=== PATIENT | female | born 2000 | race Caucasian/White ===

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

== ENCOUNTER 2025-06-30 17:43 | Emergency (ER) | payer BC, SELFPAY ==
[2025-06-30 17:53] VITALS: BP 150/91; PULSE 96; RESP 18; TEMP 36.7; O2SAT 98
--- NOTE | 2025-06-30 18:20 | ED.URI ---
HPI - URI/Sore Throat General Chief Complaint: Upper Respiratory Infection Stated Complaint: sore throat Time Seen by Provider: 06/30/25 18:05 Source: patient and RN notes reviewed Mode of arrival: ambulatory Limitations: no limitations History of Present Illness HPI Narrative: 25-year-old female presents to the [facility] complaining of upper respiratory symptoms for 2 weeks. Patient initially had symptoms of congestion, runny nose, cough, sore throat, and fevers for initially sick states she did said symptoms started to improve and she was feeling better however the last 4 days she has a like she has gotten worse she is complaining primarily of a sore throat, tender lymph nodes and fevers. Patient's post to have a tonsillectomy scheduled in the next month or 2. She denies any recent strep. Patient denies any significant past medical problems. Related Data Home Medications ?Medication ?Instructions ?Recorded ?Confirmed ?Last Taken ?Type buspirone 15 mg tablet 15 mg PO BID PRN 12/21/24 12/21/24 Unknown History Allergies Allergy/AdvReac Type Severity Reaction Status Date / Time No Known Allergies Allergy Mild Verified 06/30/25 17:44 Review of Systems Review of Systems: CONSTITUTIONAL: Denies body aches, chills, or sweats. Positive for fevers EYES: Denies visual changes, redness, or discharge. ENT: Denies rhinorrhea, congestion, or otalgia. Positive for sore throat CARDIOVASCULAR: Denies chest pain, palpitations, or edema. RESPIRATORY: Denies cough or dyspnea. GASTROINTESTINAL: Denies abdominal pain, nausea, vomiting, or diarrhea. GENITOURINARY: Denies dysuria or hematuria. SKIN: Denies rash or itching. MUSCULOSKELETAL: Denies back pain, joint pain, or myalgia. NEUROLOGIC: Denies headache, numbness, or weakness. PSYCHIATRIC: Denies anxiety or depression. All other systems reviewed are negative, except as documented in HPI. [facility] Family History Family History Mother Hypertension Grandparent Cerebrovascular accident Diabetes mellitus Social History Social History Smoking status: Never smoker Alcohol intake: current Substance use: never Substance use type: does not use Comments At the time of my signature, I reviewed and agree with the nursing past medical, surgical, social, and family history. There is no relevant family history pertinent to the patient complaint. Exam Narrative: GENERAL: This is a well-nourished, well-developed adult, in no apparent distress. They are non ill-appearing, nontoxic appearing. HEAD: normocephalic, atraumatic. EYES: Sclera clear/white. Conjunctiva normal. Vision is grossly intact. Extraocular movements intact EARS: External ears normal, auditory canals clear and without drainage, TMs normal without perforation. Hearing grossly intact. NOSE: External nose normal with no obvious nasal discharge, nasal turbinates without redness, no rhinorrhea. THROAT: Mucous membranes moist, posterior pharynx erythematous red and patchy. Tonsils erythematous 2+ and exudate of.. Uvula midline. NECK: Neck supple, there is tender lymphadenopathy, masses or thyromegaly. CARDIOVASCULAR: Regular rate and rhythm without murmurs, gallops, or rubs. RESPIRATORY: Clear to auscultation. Breath sounds equal bilaterally. No wheezes, rales, or rhonchi. SKIN: warm, Dry, intact with no suspicious lesions or rash, good texture and turgor. NEURO: awake, alert, and oriented to person, place and time. There were no obvious focal neurologic abnormalities. EXTREMITIES: No joint tenderness, effusion, or edema noted. BACK: Nontender without deformity. No CVA tenderness. Course Course Level of Care: Express Care Visit Vital Signs Vital signs: Vital Signs Temperature 98.0 F 06/30/25 17:53 Pulse Rate 96 06/30/25 17:53 Respiratory Rate 18 06/30/25 17:53 Blood Pressure 150/91 H 06/30/25 17:53 Pulse Oximetry 98 06/30/25 17:53 Oxygen Delivery Room Air 06/30/25 17:53 Temperature 98.0 F 06/30/25 17:53 Pulse Rate 96 06/30/25 17:53 Respiratory Rate 18 06/30/25 17:53 Blood Pressure 150/91 H 06/30/25 17:53 Pulse Oximetry 98 06/30/25 17:53 Oxygen Delivery Room Air 06/30/25 17:53 [facility] Narrative Medical decision making narrative: Rapid strep is negative. Throat culture is pending. There is clinical suspicion for strep pharyngitis, patient's symptoms have not fully resolved over the last 2 weeks. Go ahead and treat her with cefdinir. Discussed physical exam findings. Advised supportive measures and signs/symptoms to go to the ER. Pt is appropriate for outpt treatment and f/u. Differential Diagnosis Differential Diagnosis: Differential diagnostic considerations for upper respiratory infection include upper respiratory infection, croup, otitis media, sinusitis, viral infection, bronchitis, influenza, pharyngitis, strep, uvulitis. Lab Data Labs: Lab Results 06/30/25 Range/Units 18:28 POC Grp A Strep Screen Negative (Negative) Critical Care Time Critical Care Time Critical Care Time: No Discharge Plan Discharge Clinical Impression: Acute bacterial tonsillitis Patient Disposition: Home Condition: Stable Instructions: Antibiotic Form, Tonsillitis (ED) Additional Instructions: Throat culture be sent off and if it is positive for strep you will be contacted. ?Please take the cefdinir as prescribed until gone. ?You will be contagious for 24 hours after starting the medication. ?After 24 hours on antibiotics throw tooth brush away and start using a new one. Wash your sheets and cup/water bottle that is used daily. Do not share drinks. Take Tylenol or Ibuprofen as needed for pain or fevers. Follow instructions on the bottle.. ?Rest and stay hydrated. ?Follow up with your PCP in 3 days if symptoms are not improving. ?Go to the ER immediately if you develop worsening symptoms such as shortness of breath, chest pain, vomiting difficulty swallowing, or any serious concerns. ? Patient Language: Pashto Prescriptions: New cefdinir 300 mg capsule 300 mg PO Q12H 10 Days Qty: 20 0RF No Action cetirizine-pseudoephedrine [Zyrtec-D] 5-120 mg tablet extended release 12 hr 1 tablet PO Q12H PRN (Reason: nasal congestion) Qty: 12 0RF buspirone 15 mg tablet 15 mg PO BID PRN fluticasone propionate 50 mcg/actuation spray,suspension 1 spray intranasal DAILY 30 Days Qty: 16 2RF Rx Instructions: administer into each nostril Follow-up/Referrals: Mikie,Gloria Graham APRN [Primary Care Provider, Family Practice] Stand Alone Forms: Work/School Release IP Time of Disposition: 18:26
--- OUTSIDE RECORDS SUMMARY | 2025-06-30 18:59 | XMS_ITS | Clinical Summary ---
Author Organization [facility] Address [address] [place] [id number] Care Team Providers Care Sales Support Technician Name Role Phone Gloria Deluna CIRCULATION SALES REPRESENTATIVE Primary Care Provider Allergies No known active allergies Medications levonorgestrel (NÉSTOR) 13.5 MG IUD 1 each (13.5 mg total) by Intrauterine route once. Active busPIRone (BUSPAR) 15 MG tabletIndicatio ns:Anxiety Take 1 tablet (15 mg total) by mouth 2 (two) times daily. 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 25 Overview (05/12/2025): Depression, Problem Code: 301.12; Problem Code Type: ICD-9; Exposure to bat without known bite 04/01/2025 Pruritus of vulva 02/02/2025 Allergic rhinitis due to pollen, unspecified sea sonality 04/14/2024 Anxiety 05/06/2023 Obesity (BMI 30-39.9) 05/06/2023 Encounters Date Type Department Care Team Description 06/21/2025 MyChart Message Enc [facility] [address] [phone] Gloria Deluna NP Lab test request 05/17/2025 Results Follow-Up [facility] [address] [phone] Gloria Deluna, MELISSA HEMOGLOBIN, GLYCOSYLATED, TSH W/REFLEX, CBC W/DIFF AUTOMATED, COMPREHENSIVE METABOLIC PANEL 05/12/2025 12:32 PM CDT - 05/12/2025 11:59 PM CDT Hospital Encounter [facility] [address] [place] [address] Gloria Deluna, MELISSA Discharge Disposition: Home or Self Care (Routine Discharge) 05/12/2025 11:40 AM CDT Laboratory Only [facility] [address] [place] [address] Gloria Deluna, MELISSA 05/12/2025 11:00 AM CDT Office Visit [facility] [address] [place] [address] Gloria Deluna, MELISSA Physical 05/12/2025 Travel 04/12/2025 6:30 PM CDT - 04/12/2025 11:59 PM CDT Hospital Encounter [facility] Emergency Department Outpatient [address] [place] [address] Froilan Torre MD Discharge Disposition: Home or Self Care (Routine Discharge) 04/12/2025 Travel 04/05/2025 6:30 PM CDT - 04/05/2025 11:59 PM CDT Hospital Encounter [facility] Emergency Department Outpatient [address] [place] [address] Froilan Torre MD Discharge Disposition: Home or Self Care (Routine Discharge) 04/05/2025 Travel 04/01/2025 6:23 PM CDT - 04/01/2025 11:59 PM CDT Hospital Encounter [facility] Emergency Department Outpatient [address] [place] [address] Froilan Torre MD Discharge Disposition: Home or Self Care (Routine Discharge) 04/01/2025 Travel 04/01/2025 Therapy Plan [facility] [address] [place] [address] Michelle Talavera RN from Last 3 Months Immunizations Immunization Administration Dates Next Due DTaP (Daptacel) 01/03/2007,10/04/2003 Dtap (Acel-Immune) 07/14/2003, 3,2002,06/03 Flumist (Intranasal) 04/27/2014,04/27/20 14,04/17/2013,04/17 HPV GARDASIL 9-VALENT 11/18/2018,07/10/2018 HPV4 (Gardasil) 05/06/2018 Hepatitis A (Generic) 08/19/2009 Hepatitis A (Havrix 720 [address].U) 10/20/2007, 007 Hepatitis B (Recombivax Hb 10 Mcg) 07/10,07/10/2022,02/16/2022,02/16,01/03/2022,01/03/2022 Hepatitis B Pediatric 2002,2002 Hib (Generic) 07/14/2003,2002,2002 Hib-Hepatitis B (Comvax) 2002 Influenza (Generic) 07/19/2012,06/12/2011,2007 Influenza Adult (Generic) 04/27/2023,01/2022,05/31/2020,03/30,05/04/2018,04/24/2017,07/14/2016 ,05/11/2015 MMR (MMRII) 08/19/2009,10/20/2007,04/14/2003 Meningococcal (Menactra) 05/06/2018,02/11/2014 PFIZER COVID-19 (ORIGINAL FO RMULATION, PURPLE CAP) mRNA, LNP-S, PF, 30 MCG/0.3 ML DOSE 11/17/2020,10/27/2020 Pneumococcal (Prevnar 7) 07/14/2003,07/2002,2002,06/03 Polio IPV (Ipol) 08/19/2009, 3,2002,06/03 Rabies (Rabavert) 04/12/2025, 5,04/01/2025,03/29 Tdap (Generic) 02/11/2014 Varicella (Varivax) 01/03/2007,04/14/2003 Family History Medical History Relation Comments ADD Father Stroke Maternal Grandfather Diabetes Maternal Grandmother Depression Mother Heart Disease Mother Hyperlipidemia Mother Hypertension Mother Mental Health Mother Cancer Paternal Aunt Ovarian Relation Status Comments Father Alive Maternal Grandfather Maternal Grandmother Mother Alive Paternal Aunt Social History Tobacco Use Types Packs/Day Years Used Date Smoking Tobacco: Never Passive Smoke Exposure: Never Smokeless Tobacco: Never Tobacco Cessation:Counseling Given: Not Answered Alcohol Use Standard Drinks/Week Comments Yes 4 (1 standard drink = 0.6 oz pur e alcohol) AUDIT-C Answer Date Recorded Q1: How often do you have a drink containing alc ohol? Never 09/30/2020 Average Number of Drinks Not on file 021 Frequency of Binge Drinking Not on file 09/12 PHQ-2 Answer Date Recorded Patient Health Questionnaire-2 Score 0 04/14/2024 Comments No Sex and Gender Information Value Date Recorded Sex Assigned at Female 03/29/2025 10:40 PM CDT Legal Sex Female 8:30 PM CDT Gender Identity Not on file Sexual Orientation Not on file Last Filed Vital Signs Vital Sign Reading Time Taken Comments Blood Pressure 124/86 05/12/2025 11:06 AM CDT Pulse 79 05/12/2025 11:06 AM CDT Temperature 37.2 C (99 F) 05/12/2025 11:06 AM CDT Respiratory Rate 16 05/12/2025 11:0 6 AM CDT Oxygen Saturation 96% 05/12/2025 11: 06 AM CDT Inhaled Oxygen Concentration - - Weight 102.2 kg (225 lb 3.2 oz) 025 11:06 AM CDT Height 162.6 cm (5' 4) 05/12/2025 11:0 6 AM CDT Body Mass Index 38.66 05/12/2025 11:06 AM CDT Plan of Treatment Health Maintenance Due Date Last Done Comments Cervical Cancer Screening Pap Smear (Age 21 to 29) Every 3 Years 2002 Cervical Cancer Screening 2002 Chlamydia Screening Females ages 16-24 2018 Meningococcal B Vaccine (1 of 2 - Standard) 2018 DTaP, Tdap and Td Vaccines (7 - Td or Tdap) 02/12/2024 02/11/2014, 01/03/2007, 10/04/2003, Additional history exists PHQ-2 (Physician [place]) 07/15/2024 04/14/2024 COVID-19 Vaccine ( season) 2025 11/17/2020, 10/27/2020 Annual Physical 05/12/2026 05/12/2025, 04/15, 01/03/2022 Hepatitis C 05/06/2053 Postponed from 2020 (Patient Refused) Pneumococcal Vaccine: Pediatrics (0 to 5 Years) and At-Risk Patients (6 to 49 Years) Aged Out 07/14/2003, 04/14/2003, 2002, Additional history exists No longer eligible based on patient's age to complete this topic Hepatitis A Vaccines Completed 08/19/2009, 10/20/2007, 01/03/2007 Meningococcal Vaccine Completed 05/06/2018, 014 HPV Vaccines Completed 11/18/2018, 06/15, 05/06/2018 Hepatitis B Vaccines Completed 07/10/2022, 07/10/2022, 02/16/2022, Additional history exists Influenza Adult Completed 05/26/2025, 04/15, 04/27/2023, Additional history exists RSV Immunizations Under 20 Months Aged Out No longer eligible based on patient's age to complete this topic Procedures Procedure Name Priority Date/Time Associated Diagnosis Comments COLLECTION VENOUS BLOOD VENIPUNCTURE Routine 05/12/2025 11:31 AM CDT Obesity (BMI 30-39.9) Encounter for preventive health examination COMPREHENSIVE METABOLIC PANEL Routine 05/12/2025 11:31 AM CDT Obesity (BMI 30-39.9) Encounter for preventive health examination CBC W/DIFF AUTOMATED Routine 05/12/2025 11:31 AM CDT Obesity (BMI 30-39.9) Encounter for preventive health examination TSH W/REFLEX Routine 05/12/2025 11:31 AM CDT Obesity (BMI 30-39.9) Encounter for preventive health examination HEMOGLOBIN, GLYCOSYLATED Routine 05/12/2025 11:31 AM CDT Obesity (BMI 30-39.9) Encounter for preventive health examination from Last 3 Months Results * TSH W/REFLEX (05/12/2025 11:31 AM CDT) TSH 1.508 0.358 - 3.74 uIU/ML 05/12/2025 1:14 PM CDT [facility] Comment: HIGH DOSES OF BIOTIN MAY INTERFERE WITH THIS TEST RESULT. CORRELATION TO CLINICAL HISTORY AND PRESENTATION RECOMMENDED. FREE T4 NOT INDICATED 05/12/2025 11:3 1 AM CDT Gloria Deluna NP LABORATORY Final Result Performing Organization Address [facility] de Phone Number [facility] [address] [place] [address], [place] [phone] * HEMOGLOBIN, GLYCOSYLATED (05/12/2025 11:31 AM CDT) HGB A1C 5.1 <5.7 % 05/12/2025 1:39 PM CDT [facility] Comment: INCREASED RISK OF DIABETES <5.7% NON-DIABETES 5.7-6.4% INCREASED RISK FOR FUTURE DIABETES > OR = 6.5 CONSISTENT WITH DIABETES STANDARDS OF MEDICAL CARE IN DIABETES-2010 DIABETES CARE, 33(SUPP 1): S1-S61,2010 ESTIMATED AVG GLUCOSE 100 mg/dL 05/12/2025 1:39 PM CDT [facility] 05/12/2025 11:3 1 AM CDT us Gloria Deluna NP LABORATORY Final Result [facility] [address] [place] [address], * COMPREHENSIVE METABOLIC PANEL (05/12/2025 11:31 AM CDT) [facility] GLUCOSE 85 70 - 99 MG/DL 05/12/2025 1:14 PM CDT [facility] BUN 9 7 - 18 MG/DL 05/12/2025 1:14 PM CDT [facility] CREATININE S/P/B 0.70 0.55 - 1.02 MG/DL 05/12/2025 1:14 PM CDT [facility] SODIUM S/P/B 138 136 - 145 MMOL/L 05/12/2025 1:14 PM CDT [facility] POTASSIUM S/P/B 4.7 3.5 - 5.1 MMOL/L 05/12/2025 1:14 PM CDT [facility] CHLORIDE S/P/B 101 100 - 108 MMOL/L 05/12/2025 1:14 PM CDT [facility] CO2 27.2 21 - 32 MMOL/L 05/12/2025 1:14 PM CDT [facility] CALCIUM S/P/B 9.3 8.5 - 10.1 MG/DL 05/12/2025 1:14 PM CDT [facility] BILIRUBIN TOTAL S/P/B 0.6 0.2 - 1.2 MG/DL 05/12/2025 1:14 PM CDT [facility] TOTAL PROTEIN S/P/B 7.5 6.4 - 8.2 G/DL 05/12/2025 1:14 PM CDT [facility] ALBUMIN S/P/B 4.3 3.4 - 5.0 G/DL 05/12/2025 1:14 PM CDT [facility] AST 23 15 - 37 U/L 05/12/2025 1:14 PM CDT [facility] ALT 48 14 - 55 U/L 05/12/2025 1:14 PM T [facility] ALKALINE PHOSPHATASE S/P/B 81 50 - 136 U/L 05/12/2025 1:14 PM CDT [facility] ANION GAP 9.8 5 - 15 MMOL/L 05/12/2025 1:14 PM CDT [facility] BUN CREATININE RATIO 12.9 6 - 26 05/12/2025 1:14 PM T [facility] A/G RATIO 1.3 1.0 - 2.0 RATIO 05/12/2025 1:14 PM T [facility] GFR ESTIMATE >90 >90 ML/MIN/1.7 3 M2 05/12/2025 1:14 PM T [facility] Comment: NOTE: eGFR is not calculated for patients <18 years of age. This is an estimated GFR calculation using the new CKD EPI creatinine equation without race and so does not require a correction factor for race. This estimated GFR should not be used for calculating drug doses. 05/12/2025 11:3 1 AM CDT us Gloria Deluna NP LABORATORY Final Result [facility] [address] [place] [address], * (ABNORMAL) CBC W/DIFF AUTOMATED (05/12/2025 11:31 AM CDT) WBC 9.84 4.4 - 11.0 x10'3/uL 05/12/2025 12:49 PM CDT [facility] RBC 4.79 4.50 - 5.10 x10'6/uL 05/12/2025 12:49 PM CDT [facility] HGB 14.8 12.3 - 15.3 G/DL 05/12/2025 12:49 PM CDT [facility] HCT 43.5 35.9 - 44.6 % 05/12/2025 12:49 PM CDT [facility] MCV 90.8 80.0 - 96.0 FL 05/12/2025 12:49 PM CDT [facility] MCH 30.9 25.3 - 30.9 PG 05/12/2025 12:49 PM CDT [facility] MCHC 34.0 31.0 - 34.1 G/DL 05/12/2025 12:49 PM CDT [facility] RDW 13.1 12.4 - 15.1 % 05/12/2025 12:49 PM CDT [facility] PLT 409(H) 151 - 353 x10'3/uL 05/12/2025 12:49 PM CDT [facility] MPV 10.3 9.6 - 12.0 FL 05/12/2025 12:49 PM CDT [facility] RBC MORPHOLOGY NORMAL 05/12/2025 12:49 PM CDT [facility] PLT MORPH. NORMAL 05/12/2025 12:49 PM CDT [facility] WBC MORPHOLOGY NORMAL 05/12/2025 12:49 PM CDT [facility] LYMPHOCYTES % 23.6 15.8 - 45.0 % 05/12/2025 12:49 PM CDT [facility] NEUTROPHILS % 66.7 42.1 - 71.9 % 05/12/2025 12:49 PM CDT [facility] MONOCYTES % 7.5 5.7 - 12.5 % 05/12/2025 12:49 PM CDT [facility] EOSINOPHILS 1.8 0.0 - 5.6 % 05/12/2025 12:49 PM CDT [facility] BASOPHILS 0.2 0.0 - 1.3 % 05/12/2025 12:49 PM CDT [facility] ABS. NEUTROPHILS 6.56(H) 1.40 - 6.00 x10'3/uL 05/12/2025 12:49 PM CDT [facility] IMMATURE GRANS % 0.2 0.0 - 0.5 % 05/12/2025 12:49 PM CDT [facility] ABS. LYMPHOCYTES 2.32 0.80 - 4.70 x10'3/uL 05/12/2025 12:49 PM CDT [facility] 05/12/2025 11:3 1 AM CDT us Gloria Deluna NP LABORATORY Final Result Performing Organization Address City/State/[facility] Co de Phone Number [facility] [address] [place] [address], from Last 3 Months Insurance Care Teams Sales Support Technician Relationship Specialty [place] [address] [facility] [address]. [place] [id number] PCP - General Nurse Practitioner Family 04/14/24
--- OUTSIDE RECORDS SUMMARY | 2025-06-30 18:59 | XMS_ITS | Data Portability ---
Author Organization [facility], [id number] [facility] Address [address] [place] [address] Assessment No assessment recorded. Plan of Treatment Reminders Order Date Submit Date Provider Last Modified By Organization Details Last Modified Time Details Appointments ANNUAL - EST 15 026 07:00AM NANCY RIVAS WHNP Not available Not available Not available Lab None record ed. Referral None record ed. Procedures None record ed. Surgeries None record ed. Imaging None record ed. Medication Orders None record ed. Patient TargetsNo targets recorded. Patient Instructions Encounter Date Encounter Id Patient Instructions Last Modified By Organization Details Last Modified Time 02/02/2025 [id number] - Use hydrocortisone or clotrimazole cream as needed for itching. - Monitor symptoms and report any changes or worsening. [email or web address] Not available 02/02/2025 15:45:31 I discussed with the patient the possible causes of her symptoms, including a yeast infection and irritation. We reviewed the use of topical treatments like clotrimazole cream. I advised her to monitor her symptoms and report any changes or worsening. No visible lumps were detected during the examination, but I instructed her to report any changes in size or appearance. The patient should follow up if symptoms persist or worsen, or if there are any changes in the lump's size or appearance. [email or web address] Not available 02/02/2025 16:30:38 Reason for Referral None Reported. Problems Name Problem SNOMED Code Status Onset Date Resolution Date Notes Provider Name and Address Organization Details Recorded Time Anxiety state 655934229 Active Anxiety Disorder, Generaliz ed, - Phreesia Problem Code: 300.00; Problem Code Type: ICD-9; Not Available [facility] 12:04:56 Chronic depressive personalit y disorder 842858302 Active Depressio n, Problem Code: 301.12; Problem Code Type: ICD-9; Not Available [facility] 12:04:56 Pruritus of vulva 00953851 Active 2024 NANCY RIVAS [facility] [address], [place], [address] , [facility] 16:30:24 Problem Notes None recorded. Procedures Surgical History Date Name Laterality Status Provider Name and Address Organization Details Recorded Time 01/21/2024 Date of Last Pap Smear completed Flores Baker(TERM) [facility] 02/01/2025 12:04:25 Lela, 13.5 mg completed NANCY RIVAS MELISSA [address], [place], [address], [facility] 02/02/2025 15:37:15 Imaging Results None recorded. Procedure Notes None recorded. Medical Equipment None Reported. Allergies No known drug allergies Medications Name Sig Start Date Stop Date Status Note LastModified by Organization Details LastModified Time fluconazole 150 mg tablet TAKE 1 TABLET BY MOUTH NOW THEN REPEAT IN 1 WEEK 02/01 completed Not Available Not Available Not Available prednisone 20 mg tablet TAKE 3 TABLETS BY MOUTH ONCE DAILY FOR 6 DAYS 02/01 completed Not Available Not Available Not Available amoxicillin 875 mg tablet TAKE 1 TABLET BY MOUTH TWICE DAILY FOR 10 DAYS 01/31 completed Not Available Not Available Not Available fluticasone propionate 50 mcg/actuati on nasal spray,suspe nsion SHAKE LIQUID AND USE 1 SPRAY IN EACH NOSTRIL DAILY active Not Available Not Available No t Available Lela 14 mcg/24 hr (up to 3 years) 13.5 mg intrauterin e device Take by intrauter ine route. 2023 active Not Available Not Available Not Avai lable Vitals Date Recorded Body height Body mass index (BMI) Body weight Systolic And Diastolic Provider Name and Address Organization Details Last Updated DateTime 02/02/2025 160.02 cm 39.5 kg/m2 922762.1 g 126/70 mm[Hg] Flores Baker(TERM ) [facility] 02/02/2025 15:07:38 Social History Question Answer Notes LastModified by Organizat ion Details LastModified Time Tobacco Smoking Status Never Smoker Screenin02/21/2020 Not Available [facility] 11/12/2024 12:43:19 Do You Have An Advance Directive? No Information not available 02/02/2025 If You Are , What Was Your Level Of Alcohol Consumption Prior To ? Occasional Information not available 02/02/2025 How Many Years Have You Consumed Alcohol? 4 Information not available 02/02/2025 What Is Your Level Of Caffeine Consumption? Moderate Information not available 02/02/2025 What Type Of Diet Are You Following? REGULAR Information not available 02/02/2025 How Many Times Per Week Do You Exercise? Less Than 1 Time Per Week SocialHist oryQuestio n: 'Active But No Formal Exercise'; Information not available 11/12/2024 What Is Your Relationship Status? Other Note: Single Information not available 11/12/2024 Sex: Female Functional Status Question Answer Note LastModified by [employer] Details LastModified Time Do you use any illicit or recreational drugs? No Information not available 11/12/2024 What is your level of alcohol consumption? Occasional Qty: 0-2 per day; Note: Use status used: Never Information not available 11/12/2024 Are you currently employed? 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 Family History Relationship Description Onset Age of this Age Resolved Age Notes LastModified by Organization Details LastModified Time Maternal Grandfather Cerebrovascu lar accident Stroke Not available 07/2024 11:55:28 Maternal Grandfather Depressive disorder Depres petra Not available 11/12/2024 11:55:28 Maternal Grandfather Hypertensive disorder High Blood Pressu re Not available 11/12/2024 11:55:28 Maternal Grandfather Type 2 diabetes mellitus without complication DM Type II Proble m Code: 250.00 ; Proble m Code Type: ICD-9; API-27 Not available 02/02/2025 15:01:28 Maternal Grandfather Parkinson's disease [place] son's Diseas e API-27 Not available 02/02/2025 15:01:28 Maternal Grandmother Type 2 diabetes mellitus without complication DM Type II Proble m Code: 250.00 ; Proble m Code Type: ICD-9; API-27 Not available 02/02/2025 15:01:28 Maternal Grandmother Parkinson's disease [place] son's Diseas e API-27 Not available 02/02/2025 15:01:28 Mother Type 2 diabetes mellitus without complication DM Type II Proble m Code: 250.00 ; Proble m Code Type: ICD-9; API-27 Not available 02/02/2025 15:01:28 Mother Parkinson's disease Chris son's Diseas e API-27 Not available 02/02/2025 15:01:28 Unspecified Relation Type 2 diabetes mellitus without complication DM Type II Proble m Code: 250.00 ; Proble m Code Type: ICD-9; Relati ve: 'Aunt' ; API-27 Not available 02/02/2025 15:01:28 Unspecified Relation Parkinson's disease [place] son's Diseas e Relati ve: 'Aunt' ; API-27 Not available 02/02/2025 15:01:28 Maternal Grandmother Depressive disorder Depres petra Not available 11/12/2024 11:55:28 Maternal Grandmother Hypertensive disorder High Blood Pressu re Not available 11/12/2024 11:55:28 Mother Depressive disorder Depres petra Not available 11/12/2024 11:55:28 Mother Hypertensive disorder High Blood Pressu re Not available 11/12/2024 11:55:29 Unspecified Relation Depressive disorder Depres petra Relati ve: 'Aunt' ; Not available 11/12/2024 11:55:28 Unspecified Relation Hypertensive disorder High Blood Pressu re Relati ve: 'Aunt' ; Not available 11/12/2024 11:55:29 Medical History Condition Response Psych- Anxiety Disorder Y ID-Other Y Psych- Depression Y Cancer- Genetic screening Gynecological History Statement/Question Response History of PCOS N Flow Heavy History of Fibroids N Date of LMP 12/17/2023 History of Infertility N History of Vulvar Dysplasia N History of Cervical Dysplasia N Current Control Method: IUD Duration of Flow (days) 0 Age at Menarche 14 Current Control Method IUD History of Recurrent Ovarian Cysts N Age at first intercourse 19 HPV Vaccine Completed History of Endometriosis N Sexually Active? Y History of Dysmenorrhea N Menses Monthly N Date of Last Pap Smear 01/21/2024 Sexual Problems? N History of Sexually Transmitted Infectio n N Obstetrics History GPAL:G 0 P 0 0 0 0 Type Value Multiple Births 0 Full Term 0 Induced 0 Spontaneous 0 Premature 0 Living 0 Ectopics 0 Total 0 Past Encounters Encounter ID Performer Location Encounter Start Date Encounter Closed Date Diagnosis/Indication Diagnosis SNOMED-CT Code Diagnosis ICD10 Code Diagnosis IMO Codes Diagnosis Note [id number] LORAINE MERRILL [id number] [facility] [address] [place] [address] 02/02/2025 14:59:12 02/02/2025 15:48:32 Gynecologic examination 28641018 Z01.898 8145603 Pruritus of vulva 445956 00 L29.2 716543 Health Concerns Section Related Observation LastModified by Organization Detai ls LastModified Time None Recorded Concern Status LastModified by Organization Details LastModified Time None Recorded Advance Directives Directive N: Payers Insurance Date Sequence Insurance Name Policy Number Policy Cesar Covered Member ID Cesar Member ID Guarantor Name 01/30/2025 1 [place] [id number] P Kalen Blanco [id number] Katharine Blanco Notes Date Note Type Note Provider Name and Address Organization Details Recorded Time 02/02/2025 text/html - The patient is a 24-year-old female presenting for annual and complaints of vulvar swelling and itching. - Symptoms began on Saturday, initially suspected as a yeast infection. - Took Diflucan, symptoms worsened after concert. Symptoms improving. - Noticed lump near clitoris or urethra, right side swelling. - No pain, significant itching persists. - Lela IUD inserted last year, no periods since. - Sexually active with one partner, no STD concerns. 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 - Relationship: In a relationship with one partner for five years. NANCY RIVAS MELISSA [address] [address], [place], [address], [facility] 02/02/2025 16:31:22 OBGyn Episode No OBEpisode recorded.
--- OUTSIDE RECORDS SUMMARY | 2025-06-30 18:59 | XMS_ITS | Encounter Summary ---
Author Organization [facility] Address [address] [place] [address] Care Team Providers Care Requirements Engineer Name Role Phone Gloria Deluna NP Primary Care Provider [phone] Encounter Details Date Type Department Care Team (Late st Contact Info) Description 04/01/2025 Therapy Plan [facility] [address] [place] [address] Michelle Talavera RN Social History Tobacco Use Types Packs/Day Years Used Date Smoking Tobacco: Never Passive Smoke Exposure: Never Smokeless Tobacco: Never Alcohol Use Standard Drinks/Week Comments Yes 4 [...] on file Sexual Orientation Not on file documented as of this encounter Plan of Treatment Not on file documented as of this encounter Visit Diagnoses Diagnosis Exposure to bat without known bite- Primary Contact with or exposure to unspecified communicable disease documented in this encounter Additional Health Concerns Assessment Noted Time PHQ-9 Depression Total Score: 2 04/14/20 24 10:39 AM CDT documented as of this encounter Care Teams Requirements Engineer Relationship Specialty Start Date End Date Gloria Deluna, ATTENDANCE SECRETARY [address] [place] [address] PCP - General Nurse Practitioner Family 04/14/24 documented as of this encounter
--- OUTSIDE RECORDS SUMMARY | 2025-06-30 18:59 | XMS_ITS | Encounter Summary ---
Author Organization [facility] Address [address] [place] [address] Care Team Providers Care Balloon Seller Name Role Phone Gloria Deluna NP Primary Care Provider Encounter Details Date Type Department Care Team (Latest Contact Info) Description 05/17/2025 Results Follow-Up [facility] Family & Internal Medicine - [place] [address] [place] [address] Gloria Deluna NP [address] [place] [address] [address] [address] HEMOGLOBIN, GLYCOSYLATED, TSH W/REFLEX, CBC W/DIFF AUTOMATED, COMPREHENSIVE METABOLIC PANEL Social History Tobacco Use Types Packs/Day Years [...] documented as of this encounter Visit Diagnoses Not on filedocumented in this encounter Additional Health Concerns Assessment Noted Time PHQ-9 Depression Total Score: 2 04/14/20 10:39 AM CDT documented as of this encounter Care Teams Balloon Seller Relationship Specialty Start Date End Date Gloria Deluna, MELISSA [address] [place] [address] PCP - General Nurse Practitioner Family 04/14/24 documented as of this encounter
--- OUTSIDE RECORDS SUMMARY | 2025-06-30 18:59 | XMS_ITS | Encounter Summary ---
Author Organization [facility] Address [facility] [place] [address] Care Team Providers Care Career Guidance Counselor Name Role Phone Natividad Vinson Primary Care Provider [phone] Thea Burns NP Primary Care Provider [phone] Eloy Ritter Primary Care Provider [phone] Gloria Deluna MS SQL DBA Primary Care Provider + [phone] Encounter Details Date Type Department Care Team (Late st Contact Info) Description 12/21/2021 [employer] Message [facility] Patient Accounts [address] [place] [address] [facility] Provider Balance and payments Social History Tobacco Use Types Packs/Day Years Used Date Smoking Tobacco: Never Smokeless Tobacco: Never Alcohol Use Standard Drinks/Week Comments Never 0 (1 standard drink = 0.6 oz pur e alcohol) AUDIT-C Answer Date Recorded Q1: How often do you have a drink containing alc ohol? Never 09/30/2020 Average Number of Drinks Not on file 021 Frequency of Binge Drinking Not on file 09/12 PHQ-2 Answer Date Recorded PHQ-2 Score - If the patient scores above 3, please move on to questions 3-9 1 09/22/2021 Comments No Sex and Gender Information Value Date Recorded Sex Assigned at Female 03/29/2025 10:40 PM CDT Legal Sex Female 8:30 PM CDT Gender Identity Not on file Sexual Orientation Not on file documented as of this encounter Plan of Treatment Not on file documented as of this encounter Visit Diagnoses Not on filedocumented in this encounter Additional Health Concerns Infection Onset Date Last Indicated Resolved Time COVID-19 Rule Out 10/01/2023 10/01/2023 10/01/2023 3:13 PM CDT Assessment Noted Time PHQ-9 Depression Total Score: 3 09/23/19 22 8:34 AM ENGLISH HORN PLAYER documented as of this encounter Care Teams Career Guidance Counselor Relationship Specialty [place] [address] [place] [address] PCP - General PHYSICIAN MONOGRAM AND LETTER PASTER 05/12/21 03/07/23 [place] [address] [facility] [address] [place] [address] PCP - General Nurse Practitioner Family 03/08/2309/12 [place] [address] [place] [address] PCP - General Physician Manual Control Auger Press Operator Medical 09/24/23 [place] [address] [address] [place] [address] PCP - General Nurse Practitioner Family 04/14/24 documented as of this encounter
--- OUTSIDE RECORDS SUMMARY | 2025-06-30 18:59 | XMS_ITS | Encounter Summary ---
Author Organization [facility] Address [address] [place] [address] Care Team Providers Care Induction Machine Setter Name Role Phone Natividad Vinson Primary Care Provider [phone] Thea Burns NP Primary Care Provider [phone] Eloy Ritter Primary Care Provider [phone] Gloria Deluna TAG AND LABEL CUTTER Primary Care Provider + [phone] Encounter Details Date Type Department Care Team (Late st Contact Info) Description 01/31/2023 [employer] Message [facility] Medical [facility] Family & Internal Medicine [address] [address] [facility] Appointment & medication refill Social History Tobacco Use Types Packs/Day Years [...] Date Recorded Patient Health Questionnaire-2 Score 0 01/16/2023 Comments No Sex and Gender Information Value [...] Total Score: 3 09/23/19 22 8:34 AM POLICE JUSTICE documented as of this encounter Care Teams Induction Machine Setter Relationship Specialty [place] [address] [place] [address] PCP - General PHYSICIAN SEXUAL ASSAULT COUNSELLOR 05/12/21 03/07/23 [place] [address] Yen[address] Garcia, [address] [address] PCP - General Nurse Practitioner Family 03/08/2309/12 [place] [address] [place] [address] PCP - General Physician Deaf Interpreter Medical 09/24/23 [place] [address] [address] [place] [address] PCP - General Nurse Practitioner Family 04/14/24 documented as of this encounter
--- OUTSIDE RECORDS SUMMARY | 2025-06-30 18:59 | XMS_ITS | Encounter Summary ---
Author Organization [facility] Address [facility] [place] [address] Care Team Providers Care Property Staff Accountant Name Role Phone Natividad Vinson Primary Care Provider [phone] Thea Burns NP Primary Care Provider [phone] Eloy Ritter Primary Care Provider [phone] Gloria Deluna INSOLE COVERER Primary Care Provider + [phone] Encounter Details Date Type Department Care Team (Late st Contact Info) Description 02/06/2022 [employer] Message [facility] Patient Accounts [address] [place], [place] [id number] [facility] Payment Plan Social History Tobacco Use Types Packs/Day Years [...] Total Score: 3 09/23/19 22 8:34 AM GUIDE PLANT documented as of this encounter Care Teams Property Staff Accountant Relationship Specialty [place] [address] [place] [address] PCP - General PHYSICIAN PIECE DYER 05/12/21 03/07/23 [place] [address] [facility] [address] [place] [address] PCP - General Nurse Practitioner Family 03/08/2309/12 [place] [address] [place] [address] PCP - General Physician Honing Job Setter Medical 09/24/23 [place] [address] [address] [address] PCP - General Nurse Practitioner Family 04/14/24 documented as of this encounter
--- OUTSIDE RECORDS SUMMARY | 2025-06-30 18:59 | XMS_ITS | Clinical Summary ---
Author Organization [facility] Address [address] [place] [address] Care Team Providers Care Switch Tender Name Role Phone Unavailable Primary Care Provider Unavailabl e Source Comments [facility],non-owned Affiliates and Associated Physician Practices is amultiple site organization consisting of ambulatory clinics and hospital sitesin [place], [place], [place] and [place]. This disclosure is being madepursuant to the Care Everywhere program and may not contain all information available regarding this patient. Last updated 18.[facility] docplanner Allergies No known active allergies Immunizations Immunization Administration Dates Next Due INFLUENZA VACCINE, QUADR. (F LUZONE; FLULAVAL; FLUARIX; AFLURIA QUADRIVALENT; 6MO+), 0.5 ML (IIV4) 07/14/2016 Social History Tobacco Use Types Packs/Day Years Used Date Smoking Tobacco: Never Assessed Comments Unknown Sex and Gender Information Value Date Recorded Sex Assigned at Not on file Legal Sex Female 6:45 AM OWNER ORAL SURGEON Gender Identity Not on file Sexual Orientation Not on file Plan of Treatment Health Maintenance Due Date Last Done Comments HIV SCREENING 2017 HPV VACCINE (1 - 3-dose series) 2017 CHLAMYDIA/GONORRHEA SCREENING 2018 MENINGOCOCCAL (Group B) VACC INE SHARED DECISION-MAKING (1 of 2 - Standard) 2018 HEPATITIS C SCREENING 04/02/2020 DTAP/TDAP/TD VACCINES (1 - Tdap) 2021 HEPATITIS B VACCINE (1 of 3 - 19+ 3-dose series) 2021 DEPRESSION SCREENING 07/15/2024 COVID-19 VACCINE (1 - 2024-2 6 season) 2025 INFLUENZA VACCINE (#1) 2025 07/14/2016 ZOSTER VACCINE (1 of 2) 2052 HIB VACCINE Aged Out No longer eligi ble based on patient's age to complete this topic MENINGOCOCCAL GROUPS A/C/Y/W VACCINE Aged Out No longer eligible b ased on patient's age to complete this topic PNEUMOCOCCAL VACCINE Aged Out No long er eligible based on patient's age to complete this topic Insurance [facility]
--- OUTSIDE RECORDS SUMMARY | 2025-06-30 19:00 | XMS_ITS | Clinical Summary ---
Author Organization [facility] Address [address] [facility] [place] [address] Care Team Providers Care Supervisor Respiratory Name Role Phone Unavailable Primary Care Provider Unavailabl e Social History Tobacco Use Types Packs/Day Years Used Date Smoking Tobacco: Never Assessed Comments Unknown Sex and Gender Information Value Date Recorded Sex Assigned at Not on file Legal Sex Female 10:25 AM EDT Gender Identity Not on file Sexual Orientation Not on file Plan of Treatment Not on file Medical Devices Not on file [place] [address] [place] [address]
[2025-06-30 19:01] LABS: EDSTREPNEGPOS1 Negative (Negative)
== END 2025-06-30 18:28 | disposition home or self-care (01) ==
PROVIDERS: PCP Nurse Practitioner Family
DX: J03.90 Acute tonsillitis, unspecified (principal)
CPT/HCPCS: 87081; 87880; 99213; G0463